=== PATIENT | female | born 1945 | race Caucasian/White ===

== ENCOUNTER → 2024-08-07 07:29 | Outpatient (CLI) | payer MEDICARE, SELFPAY ==
--- NOTE | 2024-08-07 07:36 | DI.NM.S_ITS ---
PROCEDURE: NM EXERCISE TREADMILL NON NUC COMPARISON: None. INDICATIONS: SYNCOPE AND COLLAPSE FINDINGS: The patient exercised for 3 minutes and 38 seconds reaching 4.6METs, MONIK +26% and 89% of maximum predicted heart rate. Appropriate BP response to exercise. No diagnostic ST changes and no angina during exercise or recovery. Frequent PVCs during the study, including a triplet during recovery. IMPRESSION: Low risk, normal treadmill ECG only stress test from inducible ischemia standpoint. Reduced exercise tolerance (4.6METs, MONIK +26%). Frequent PVCs during the study, including a triplet during recovery. Dictated by: Ovidio Rosales MD on 08/07/2024 at 13:17 Approved by: Ovidio Rosales MD on 08/07/2024 at 13:19
== END ==
LOC: NUCM 07:34
PROVIDERS: PCP Student in an Organized Health Care Education/Training Program; Referring Provider Student in an Organized Health Care Education/Training Program; Visit Provider Student in an Organized Health Care Education/Training Program
DX: R55 Syncope and collapse (principal)
CPT/HCPCS: 93017